=== PATIENT | male | born 1955 | race Caucasian/White ===

== ENCOUNTER 2022-02-09 07:26 | Day surgery (SDC) | payer OTHER ==
[~2022-02-09] VITALS: Ht 155.4 cm; Wt 70.5 kg
[2022-02-09] MEDS ORDERED: LIPITOR 40MG TA40 MG PO (07:58)
[2022-02-09 09:01] VITALS: BP 126/83; PULSE 64; TEMP 97.4
[2022-02-09 09:30] VITALS: BP 124/80; PULSE 63; TEMP 97.5
--- NOTE | 2022-02-09 09:30 | NUR ---
PATIENT ARRIVES TO ROOM 4 VIA CART. ASSIST X 1 TO CHAIR. AT BEDSIDE. VITAL SIGNS WNL. DOCTOR ALSO AT BEDSIDE. WILL CONTINUE TO MONITOR.
[2022-02-09 09:45] VITALS: BP 122/80; PULSE 63
[2022-02-09 10:00] VITALS: BP 134/85; PULSE 67
--- NOTE | 2022-02-09 10:00 | NUR ---
PATIENT IS READY FOR DISCHARGE. VITAL SIGNS WNL. IV REMOVED. DISCHARGE INSTRUCTIONS REVIEWED. WILL DISCHARGE WHEN HE IS DRESSED AND READY.
[2022-02-09 10:07] VITALS: BP 113/93; PULSE 55
== END 2022-02-09 10:15 | disposition home or self-care (01) ==
LOC: SDCO 07:26
DX: Z12.11 Encounter for screening for malignant neoplasm of colon (principal); F17.210 Nicotine dependence, cigarettes, uncomplicated
CPT/HCPCS: J2704; J3010; J7030